=== PATIENT | female | born 1960 | race Caucasian/White ===

== ENCOUNTER → 2017-11-02 09:45 | Outpatient (CLI) | payer MEDICARE, MEDICAID, SELFPAY | PROVIDERS: PCP Family Medicine; Visit Provider Orthopaedic Surgery | DX: Z47.89 Encounter for other orthopedic aftercare (principal); G56.02 Carpal tunnel syndrome, left upper limb ==

== ENCOUNTER → 2018-01-04 09:05 | Outpatient (BNVA) | payer MEDICARE, MEDICAID, SELFPAY | PROVIDERS: Visit Provider Orthopaedic Surgery | DX: G56.01 Carpal tunnel syndrome, right upper limb (principal); M77.11 Lateral epicondylitis, right elbow | CPT/HCPCS: 99213 ==

== ENCOUNTER → 2018-02-14 08:54 | Outpatient (BNVA) | payer MEDICARE, MEDICAID, SELFPAY | PROVIDERS: PCP Family Medicine; Visit Provider Orthopaedic Surgery | DX: M25.521 Pain in right elbow (principal) | CPT/HCPCS: 20605; 99213; J1030 ==

== ENCOUNTER → 2018-04-03 10:21 | Outpatient (BNVA) | payer MEDICARE, MEDICAID, SELFPAY | PROVIDERS: PCP Family Medicine; Referring Provider Family Medicine; Visit Provider Orthopaedic Surgery | DX: M77.11 Lateral epicondylitis, right elbow (principal) | CPT/HCPCS: 99213; 99242 ==

== ENCOUNTER 2018-04-10 07:56 | Outpatient (CLI) | payer MEDICARE, MEDICAID, SELFPAY | END 2018-04-10 08:16 | PROVIDERS: PCP Family Medicine; Visit Provider Orthopaedic Surgery | DX: M77.11 Lateral epicondylitis, right elbow (principal); Z01.818 Encounter for other preprocedural examination ==

== ENCOUNTER 2018-04-11 12:14 | Day surgery (SDC) | payer MEDICARE, MEDICAID, SELFPAY ==
[2018-04-11] VITALS (7 sets, daily range): BP systolic 99–128; BP diastolic 60–72; PULSE 79–90; RESP 12–18; TEMP 36.2–36.7; O2SAT 92–99
[2018-04-11] MEDS: Lactated Ringers 1,000 ML 80 ML IV (12:47)
[2018-04-11] MEDS: Albuterol/Ipratropium 3 ML UPD VIAL UPD (13:23)
--- NOTE | 2018-04-11 15:49 | PDOC.DSDIS_ITS ---
Discharge Plan Disposition Patient Disposition: HOME Condition: Good Discharge Details Reason For Visit: (R) LAT EPICONDYLITIS Attending Provider: Cheikh Freed Primary Care Provider: Davis Casas Home Meds and New Rx's Prescriptions: New hydrocodone-acetaminophen 5-325 mg tablet 1 tab PO Q6H PRN (Reason: pain) Qty: 20 RF: 0 ibuprofen 800 mg tablet 800 mg PO TID Qty: 60 RF: 0 Continued zolpidem [Ambien CR] 6.25 MG tablet,ext release multiphase 6.25 mg PO HS RF: 0 aspirin 325 MG tablet 325 mg PO HS RF: 0 omeprazole 20 MG capsule,delayed release(DR/EC) 20 mg PO HS RF: 0 Spiriva with HandiHaler 18 MCG capsule, w/inhalation device 1 puff Inhalation DAILY PRNRF: 0 Symbicort 10.2 GM HFA aerosol inhaler 2 puff Inhalation DAILY RF: 0 All Day Allergy (cetirizine) 10 MG capsule 10 mg PO HS RF: 0 naproxen 500 MG tablet 500 mg PO PRN PRNRF: 0 Airs Disposable Nebulizer 1 EACH misc 1 ea Inhalation PRN PRNRF: 0 Ventolin HFA 200 PUFF HFA aerosol inhaler 2 puff Inhalation PRN PRNRF: 0 hydrocodone-acetaminophen [Vicodin HP] 10-300 mg Tablet 1 tab PO TID RF: 0 ranitidine HCl [Zantac] 300 mg Tablet 300 mg PO HS RF: 0 benzonatate 100 mg Capsule 100 mg PO HS RF: 0 doxycycline monohydrate 100 mg Capsule 100 mg PO HS RF: 0 aripiprazole 5 mg Tablet 5 mg PO HS RF: 0 Discharge Instructions Additional Instructions: Sling for comfort. May take R arm out of sling as much as your pain allows. Gently bend and straighten R elbow only as much as your pain allows. 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 Keep dressings dry. Follow up in 's office in one week. Take ibuprofen 3 times/day for pain and swelling. Take hydrocodone, if needed, for breakthru pain. Apply icebag to outside of elbow 4 times/day for 1 hour each time. Equipment/Supplies: Sling Activity:: Activity as Tolerated Remove Dressings/Wound Care:: Do Not Remove Shower/Bathe:: Cover Diet:: As Tolerated Discharge Orders Discharge Orders: Discharge Order (Routine); Ordered 04/11/18 Ordered By: Cheikh Freed DS: Diagnosis Discharge Diagnosis (1) Lateral epicondylitis of right elbow: Status: Acute
--- NOTE | 2018-04-12 16:29 | ROE_ITS ---
DATE OF PROCEDURE: April 11, 2018 PREOPERATIVE DIAGNOSIS: Lateral epicondylitis, right. POSTOPERATIVE DIAGNOSIS: Lateral epicondylitis, right. PROCEDURE: Fasciotomy elbow, right, with partial ostectomy for chronic lateral epicondylitis. SURGEON: Cheikh Freed M.D. OUTSIDE PLANT TECHNICIAN: Ga Agosto PA-C ANESTHESIA: General. INDICATIONS: This is a 57-year-old white female with chronic right lateral epicondylitis symptomatic for over a year's time. She has reached the point where she can no longer function because of the p ain. Conservative measures over more than six months' time have failed to alleviate her symptoms. S urgery was, therefore, recommended. The risks and complications of the procedure were explained to t he patient in detail preoperatively. PROCEDURE: The patient was taken to the Operating Room on 04/11/18. She was placed supine on the ope rating table and a general anesthetic was administered. A proximal tourniquet was applied to the rig ht upper arm and then the right elbow was prepped and draped free in the usual sterile fashion. A 5- cm oblique incision centered over the lateral condyle was made and was carried through the subcu. Th e common extensor origin was then sharply reflected from the lateral epicondyle. Care was taken not to release the lateral collateral ligament of the elbow. The undersurface of the common extensor allie gin was then debrided with a rongeur to health tendinous tissue. A small hook osteotome was then use d to remove a wafer of bone from the lateral epicondyle to decrease the bony prominence and to provid e a bleeding bed for reattachment of the common extensor tendons. The wound was irrigated with Betad ine and saline solution. The wound margins were infiltrated with 0.5% Marcaine with epinephrine solu tion. The common extensor tendons were then reattached to the lateral elbow with interrupted figure- of-eight sutures of #1 Vicryl suture material. The subcu was approximated with a few interrupted #3- 0 Vicryl sutures and the skin edges were approximated with skin meghan. Sterile dressings were appl ied of Xeroform gauze, sterile gauze 4x4s, an ABD pad, and wrapped with an Gus bandage. Her arm was placed in a sling. She tolerated the procedure well. Blood loss was minimal. Surgery was done unde r tourniquet control. She was discharged to the Recovery Room in good condition. The patient was discharged home from the Day Surgery Unit when fully recovered from her general anest hesia. She was given instructions to use a sling for comfort. She may keep her right arm out of the sling as much as discomfort allows. She is encouraged to bend and straighten her right elbow as muc h as discomfort allows. She is cautioned not to lift anything more than a coffee cup with her right hand. She may remove her dressings, shower and get her incision wet in 72 hours. She can leave the incision uncovered when it is dry and sealed. She is to put ice to the lateral elbow every 4 hours f or 1 hour at a time to help with pain and inflammation. She is given a prescription for pain and inf lammation of ibuprofen 800 mg p.o. t.i.d. She is given a prescription for breakthrough pain of hydro codone/APAP 5 mg/325 mg, 1 tablet every 6 hours if needed for breakthrough pain. She will follow up in my office in two weeks.
== END 2018-04-11 16:35 | disposition home or self-care (01) ==
PROVIDERS: PCP Family Medicine; Visit Provider Orthopaedic Surgery
PROC: (CPT 24357; principal; 2018-04-11 14:00)
DX: M77.11 Lateral epicondylitis, right elbow (principal); J44.9 Chronic obstructive pulmonary disease, unspecified; K21.9 Gastro-esophageal reflux disease without esophagitis; F17.210 Nicotine dependence, cigarettes, uncomplicated
CPT/HCPCS: 24359; 94640; J0690; J1885; J2405; J3010; J7620; L3650

== ENCOUNTER → 2018-04-17 10:19 | Outpatient (BNVA) | payer MEDICARE, MEDICAID, SELFPAY | PROVIDERS: PCP Family Medicine; Referring Provider Family Medicine; Visit Provider Orthopaedic Surgery | DX: M77.11 Lateral epicondylitis, right elbow (principal); Z47.89 Encounter for other orthopedic aftercare; J44.9 Chronic obstructive pulmonary disease, unspecified; F17.210 Nicotine dependence, cigarettes, uncomplicated ==

== ENCOUNTER → 2018-04-24 10:22 | Outpatient (BNVA) | payer MEDICARE, MEDICAID, SELFPAY | PROVIDERS: PCP Family Medicine; Referring Provider Family Medicine; Visit Provider Orthopaedic Surgery | DX: Z47.89 Encounter for other orthopedic aftercare (principal); M77.11 Lateral epicondylitis, right elbow; J44.9 Chronic obstructive pulmonary disease, unspecified; F17.210 Nicotine dependence, cigarettes, uncomplicated ==

== ENCOUNTER → 2018-05-17 10:14 | Outpatient (BNVA) | payer MEDICARE, MEDICAID, SELFPAY | PROVIDERS: PCP Family Medicine; Referring Provider Family Medicine; Visit Provider Orthopaedic Surgery | DX: Z47.89 Encounter for other orthopedic aftercare (principal); M77.11 Lateral epicondylitis, right elbow; J44.9 Chronic obstructive pulmonary disease, unspecified; F17.210 Nicotine dependence, cigarettes, uncomplicated ==

== ENCOUNTER → 2021-09-10 00:09 | Outpatient (CLI) | payer MEDICARE, MEDICAID, SELFPAY ==
--- NOTE | 2021-09-10 | DI.MRI_ITS ---
Exam(s) MR CERVICAL SPINE WO EXAM: MR CERVICAL SPINE WO CLINICAL HISTORY: LT SIDED NECK PAIN M54.2 PAIN LEFT SHOULDER M25.512 PAIN LT UPPER EXTREMITY. TECHNIQUE: Multiplanar multisequence MRI was performed. COMPARISON: MR MRI - CERVICAL SPINE WO CONT from 08/09/2017 FINDINGS: MR examination of the cervical spine was performed according to the usual protocol. No significant bony signal abnormality seen. There are mild facet hypertrophic degenerative changes and mild endplate hypertrophic degenerative changes. Posterior fossa structures appear intact as visualized. Spinal cord shows normal diameter and normal signal throughout on T2 weighted imaging. No significant findings at C2-3. At C3-4, there is mild neural foraminal narrowing on the left. No disc herniation or central canal s marianne stenosis. No significant findings at C 4 5. No disc herniation, central canal spinal stenosis, or neural hanna inal stenosis. At C5-6, there is a mild prominence of the disc osteophyte complex on the right laterally with probab le small superimposed disc herniation. Minimal deformity of anterior cord surface on the right noted at this level. The right neural foramen may be mildly impinged as well. No central canal spinal st enosis. At C6-7, there is an apparent left-sided paracentral to left lateral disc herniation. Borders of the herniated disc are not ideally visualized but the disc herniation appears to project superiorly into the spinal canal at the C6 vertebral body level and the left neural foramen at C6-7 also appears imp inged. No definite cord impingement. The No significant findings at its C7-T1 or T1-T2. IMPRESSION: Left-sided disc herniation with complex anatomy at C6-7 as described above. Please see above discuss ion. Please correlate with the patient's neurologic symptoms. Please note that these findings were not present on prior cervical spine MRI of July 2017. DATA REPOSITORY:
== END ==
PROVIDERS: PCP Family Medicine; Visit Provider Physical Medicine & Rehabilitation
DX: M25.512 Pain in left shoulder; M50.223 Other cervical disc displacement at C6-C7 level; G89.29 Other chronic pain; M79.602 Pain in left arm
CPT/HCPCS: 72141

== ENCOUNTER 2022-09-22 11:42 | Outpatient (CLI) | payer MEDICARE, MEDICAID, SELFPAY ==
[2022-09-22 11:56] LABS: Abs Immature Grans 0.05 10^3/uL (0.0-0.06); Absolute Basophil Count 0.03 10^3/uL (0.0-0.2); Absolute Lymphocyte Count 2.42 10^3/uL (1.2-3.4); Absolute Monocyte Count 0.58 10^3/uL (0.1-0.8); Absolute Neutrophil Count 6.54 10^3/uL (1.2-6.7); Basophils % 0.3; HCT 44.7 % (36.0-46.0); HGB 15.5 g/dL (11.2-15.7); Immature Grans % 0.5; Lymphocytes % 24.9; MCH 32.3 pg (27.0-33.0); MCHC 34.7 % (32.0-36.0); MCV 93 fL (80-95); Neutrophils % 67.3; Platelet Count 197 10^3/uL (130-400); RDW 11.9 % (11.7-14.6); RDW-SD 41.3 fL; WBC 9.72 10^3/uL (4.4-10.8)
[2022-09-22 12:32] LABS: ALT 20 U/L (14-59); AST 13 U/L (15-37); Albumin 3.5 g/dL (3.4-5.0); Alkaline Phosphatase 95 U/L (46-116); Anion Gap 8.1 mmol/L (3-11); BUN 14 mg/dL (7-18); Bilirubin, Total 0.5 mg/dL (0.2-1.0); CO2 28.9 mmol/L (21.0-32.0); CREATININE 0.9 mg/dL (0.55-1.02); Calcium 9.1 mg/dL (8.5-10.1); Chloride 105 mmol/L (98-107); Estimated GFR 73.19 (mL/min/1.73m2); Glucose 122 mg/dL (74-106); Sodium 142 mmol/L (136-145); Total Protein 6.5 g/dL (6.4-8.2)
== END 2022-09-22 11:43 | disposition home or self-care (01) ==
LOC: PUL 11:44 → LBN 11:49
PROVIDERS: PCP Family Medicine; Visit Provider Physician Assistant Surgical
DX: J44.1 Chronic obstructive pulmonary disease with (acute) exacerbation (principal)
CPT/HCPCS: 80053; 85025

== ENCOUNTER 2022-09-22 12:00 | Outpatient (CLI) | payer MEDICARE, MEDICAID, SELFPAY ==
--- NOTE | 2022-09-22 11:53 | DI.RAD_ITS ---
Exam(s) XR CHEST 2V PA LATERAL EXAM: XR CHEST 2V PA LATERAL CLINICAL HISTORY: COPD exacerbation, J44.1, ?pneumonia TECHNIQUE: 2D digital imaging was performed. COMPARISON: CR CHEST 2 VIEWS PA,LAT from 05/01/[address] CHEST LOW DOSE CA SCREENING from 01/26/2022 FINDINGS: HEART: Normal size. Aorta: Not dilated. PULMONARY VASCULATURE: Normal. LUNGS: Emphysematous and fibrotic changes. Anterior scarring PLEURAL SPACE: No pleural effusion or pneumothorax. BONE:Unremarkable for age. IMPRESSION: No acute abnormality. DATA REPOSITORY: RADIATION DOSE DELIVERED:
== END 2022-09-22 12:20 ==
LOC: DI 12:01
PROVIDERS: PCP Family Medicine; Visit Provider Physician Assistant Surgical
DX: J44.1 Chronic obstructive pulmonary disease with (acute) exacerbation (principal)
CPT/HCPCS: 71046

== ENCOUNTER 2022-10-12 02:49 | Outpatient (CLI) | payer MEDICARE, MEDICAID, SELFPAY ==
--- NOTE | 2022-10-12 08:45 | DI.CT_ITS ---
Exam(s) CT CHEST PE ABD PELVIS W EXAM: CT CHEST PE ABD PELVIS W CLINICAL HISTORY: tachypnea, COPD, dyspnea, GI bleed, hematochezia. TECHNIQUE: Imaging Protocol: Axial CT angiography was performed with multi-slice acquisition and mu lti-planar and/or 3D reconstructions. CONTRAST MATERIAL: Intravenous: Omnipaque 350 Contrast volume:100 ml COMPARISON: CT CT CHEST LOW DOSE CA SCREENING from 12/24/[address] CHEST LOW DOSE CA SCREENING from 01/26/2022 CR XR CHEST 2V PA LATERAL from 09/22/2022 FINDINGS: CHEST: Pulmonary Arteries: No evidence of filling defect to suggest pulmonary emboli. Tracheobronchial tree: Patent where visualized. Mediastinum and Cornelia: No dominant adenopathy or fluid collection. Pulmonary parenchyma: Severe centrilobular emphysematous changes, greatest right upper lobe. Minimal scarring left upper lobe. Scarring anterior right middle lobe.. No consolidation or dominant measu rable mass. Pleura: No effusion or pneumothorax. Heart: The heart is not dilated. Mild coronary artery calcifications are seen. Aorta: Thoracic aorta non-dilated. Mild atherosclerotic changes at arch. Bones: Unremarkable for age. Tubes, Catheters, and Lines: None ABDOMEN: Liver: Normal density. No measurable mass. Gallbladder and Biliary Tract: No radiodense calculus or dilation. Pancreas: Normal density, no abnormal calcifications or inflammatory process. Spleen: Normal. Adrenals: No masses seen. Kidneys: Normal size, contour and axis. No radiodense stones or obstructive uropathy. No masses seen. Abdominal Aorta: Abdominal portion non-dilated. Atherosclerotic changes. No significant narrowing at the celiac axis or SMA. Bowel: No obstruction or bowel wall thickening. Appendix is not seen. Diverticulosis lower descend ing and sigmoid colon. No evidence of diverticulitis. Increased stool seen in right colon. Transve rse colon through rectum show little stool. Peritoneal Cavity: No ascites, collection or mesenteric inflammatory response. Lymph Nodes: Within normal limits. Bones: Unremarkable. Soft Tissues: Unremarkable. PELVIS: Bladder: Symmetric distention, no gross wall thickening. Reproductive Organs: Status post hysterectomy. Lymph Nodes: Within normal limits. Bones: Unremarkable for age. IMPRESSION: 1. No evidence of pulmonary embolism. Emphysematous changes. No evidence of mass. 2. No acute abdominal or pelvic process. Diverticulosis lower descending and sigmoid colon. No ev idence of diverticulitis RADIATION DOSE DELIVERED: Total DLP DATA REPOSITORY: All CT scans at this facility are submitted to the National Radiology Data Registry (NRDR) Dose Index Registry (DIR) with the [employer] (ACR). RADIATION OPTIMIZATION: All CT scans at this facility use at least one of these dose optimization te chniques: automated exposure control; mA and/or kV adjustment per patient size (includes targeted exa ms where dose is matched to clinical indication); or iterative reconstruction.
[2022-10-12] MEDS: Normal Saline - Diluent 50 ML VIAL IJ (14:04)
[2022-10-12] MEDS: Omnipaque 350 MG/ML 100 ML BTL IJ (14:05)
[2022-10-12] MEDS: Normal Saline Flush 10 ML SYR IVP (14:06)
== END 2022-10-12 03:09 ==
LOC: DI 02:49
PROVIDERS: PCP Family Medicine; Visit Provider Student in an Organized Health Care Education/Training Program
DX: K92.1 Melena (principal); R06.00 Dyspnea, unspecified; K57.30 Diverticulosis of large intestine without perforation or abscess without bleeding
CPT/HCPCS: 71275; 74177; J3490

== ENCOUNTER → 2023-02-20 13:52 | Outpatient (BNVA) | payer MEDICARE, MEDICAID, SELFPAY | PROVIDERS: PCP Family Medicine; Referring Provider Family Medicine; Visit Provider Student in an Organized Health Care Education/Training Program | DX: J44.9 Chronic obstructive pulmonary disease, unspecified (principal); Z79.51 Long term (current) use of inhaled steroids; Z79.899 Other long term (current) drug therapy; F17.210 Nicotine dependence, cigarettes, uncomplicated; G47.34 Idiopathic sleep related nonobstructive alveolar hypoventilation | CPT/HCPCS: 99214; 99406 ==

== ENCOUNTER 2023-03-22 13:38 | Emergency (ER) | payer MEDICARE, MEDICAID, SELFPAY ==
[2023-03-22] VITALS (46 sets, daily range): BP systolic 84–150; BP diastolic 56–85; PULSE 53–90; RESP 9–30; TEMP 37–37.1; O2SAT 89–98
--- NOTE | 2023-03-22 13:30 | RT.EKG_ITS ---
APPROVED REPORT Exam: Resting ECG Reason for Exam: sob Patient Location: E HR:78 bpm ECG Measurements Heart Rate [address] 114 P 87 QRSd 95 QRS 73 QT 372 T 61 QTc 423 Conclusion Sinus rhythm...normal P axis, V-rate 60- 99 Narrow complex normal sinus rhythm at a rate of 78. Normal axis. Short CT interval at 114 ms. No obvious delta wave. T wave inversion in aVL. No ST segment abnormalities beyond mild inferior ST se gment flattening. Low voltage. No prior for comparison.
--- NOTE | 2023-03-22 13:47 | W.ED.GENAD ---
Discharge Plan Disposition Patient Disposition: Home Discharge Details Clinical Impression: COPD with acute exacerbation Primary Care Provider: Davis Casas ED Provider: Ric Rodriges Home Meds and New Rx's Prescriptions: New doxycycline hyclate 100 mg capsule 100 mg PO BID Qty: 10 0RF prednisone 50 mg tablet 40 mg PO DAILY Qty: 4 0RF Rx Instructions: Please begin taking tomorrow as you have received steroids in the emergency department Continued acetylcysteine [NAC] 600 mg capsule 600 mg PO BID Qty: 60 10RF ipratropium-albuterol 0.5 mg-3 mg(2.5 mg base)/3 mL solution for nebulization 3 ml inhalation QID PRN (Reason: SOB and wheezing) Qty: 180 12RF albuterol sulfate [Ventolin HFA] 90 mcg/actuation HFA aerosol inhaler 2 puff inhalation Q6H PRN (Reason: shortness of breath or wheezing) 30 Days Qty: 8.5 6RF trazodone 50 mg tablet 50 mg PO QHS Qty: 14 0RF melatonin 10 mg capsule 10 mg PO HS PRN (DME) Oxygen Tank See Rx Instructions .Route Rx Instructions: As directed : 1L nasal canal at HS. Trelegy Ellipta 200-62.5-25 mcg blister with device 1 inh inhalation DAILY aspirin 325 MG tablet 325 mg PO HS omeprazole 20 MG capsule,delayed release(DR/EC) 20 mg PO HS All Day Allergy (cetirizine) 10 MG capsule 10 mg PO HS naproxen 500 MG tablet 500 mg PO PRN PRN Patient Comments: no longer takes (DME) nebulizers [Airs Disposable Nebulizer] 1 EACH misc 1 ea Inhalation PRN benzonatate 100 mg Capsule 100 mg PO HS ibuprofen 800 mg tablet 800 mg PO TID Qty: 60 0RF Discharge Instructions Instructions: COPD (Chronic Obstructive Pulmonary Disease) (ED) Additional Instructions: You were seen in the emergency department for your shortness of breath. Your blood work shows no sign of a heart attack. Your x-ray showed no sign of pneumonia. Please take these prescriptions as directed. Please follow-up with your primary care provider next week. If you develop worsening shortness of breath please return to the emergency department. HPI General Date/Time Provider Initiated Documentation: 03/22/23 13:47. HPI Narrative: No MDM This is a mildly hypotensive but not tachycardic 62-year-old female with advanced COPD with shortness of breath concerning for COPD exacerbation. Given chest pain will obtain troponin the patient denies history of coronary artery disease and her ECG is nonischemic. No pain out of proportion to suggest necrotizing soft tissue infection. No fevers to suggest pneumonia however given hypotension will treat empirically with ceftriaxone and draw blood cultures.Given concern for COPD exacerbation we will treat with dexamethasone and prednisone. Given no tachycardia nor calf pain I am not concerned for DVT so I did not send a D-dimer. No trauma and equal breath sounds so doubt pneumothorax. Patient is not a dialysis patient so my suspicion for tamponade is low. Patient has a low voltage on ECG however given her history of COPD suspect that this is secondary to lung hyperinflation. No history of CHF and no significant lower edema to suggest new onset CHF. 2:15 PM Reassuring normal lactate. CBC lacks anemia thrombocytopenia and leukocytosis. Venous blood gas showing no acidemia nor hypercarbia. 3:07 PM COVID influenza and RSV all negative. Negative troponin. Basic metabolic panel showing no CKD nor ROSENDO. No acute electrolyte abnormalities. Chest x-ray with severe emphysematous changes but no acute findings. 3:57 PM I reassessed the patient and she was feeling improved. She is saturating well on room air with improved work of breathing. She is pending a repeat troponin. I signed patient out to Dr. Dos Santos and written her up with continued discharge instructions. Chronic conditions affecting the care of the patient: COPD History obtained from an outside historian: N/A External record review: [facility] [place] [Diagnostic interpretations performed by me: Per my independent interpretation chest x-ray shows:Hyperinflated lungs. No acute cardiopulmonary process Per my independent interpretation EKG shows: Narrow complex normal sinus rhythm at a rate of 78. Normal axis. Short ND interval at 114 ms. No obvious delta wave. T wave inversion in aVL. No ST segment abnormalities beyond mild inferior ST segment flattening. Low voltage. No prior for comparison. Medications: Doxy, prednisone Social determinants of health affecting disposition: N/A Management discussed with: N/A Treatment/interventions considered: N/A Response to therapies provided: Improved work of breathing status post nebulizer treatment HPI This is a 62-year-old female with a history of COPD on nocturnal oxygen as needed arriving to the emergency department via private vehicle in the setting of increased shortness of breath. She recently completed azithromycin as prescribed by her primary care provider. She has had productive cough with labored breathing and increased her oxygen to 3 L at night. She continues smoking but does note that she has cut down. She has had no calf pain. She denies routine ethanol and illicits. Patient denies dysuria and frequency. She does feel a heavy discomfort in her chest. It radiates into her back and is associated with difficulty breathing. She has never been hospitalized or intubated in the setting of her COPD in the past. She said no fevers. She has not been nauseous nor vomiting. Exam General: Well-appearing in no acute distress speaking in 4-5 word sentences. Head: Normocephalic, atraumatic. Eye: Extraocular eye movements intact. No conjunctival injection. No scleral icterus. Ear, nose, mouth, throat: Grossly normal inspection. Normal voice, handling secretions normally. Neck: Trachea midline. Cardiovascular: Well-perfused distal extremities. Rapid regular rate Respiratory: Mild abdominal breathing. No accessory muscle use. No tripoding. Markedly prolonged and expiratory wheezes bilaterally. Gastrointestinal: Nondistended abdomen. Musculoskeletal: No lower extremity pitting edema. Moving all 4 extremities spontaneously. Skin: Normal for age and race, grossly normal temperature and turgor. No acute rash. Neurologic: Alert and appropriate, no apparent acute deficits. Psychiatric: Mood and manner are appropriate. Grooming and personal hygiene are appropriate. Related Data Home Medications Medication Instructions Recorded Confirmed aspirin 325 mg tablet 325 mg PO HS 06/16/13 03/22/23 cetirizine 10 mg capsule (All Day 10 mg PO HS 06/16/13 03/22/23 Allergy (cetirizine)) omeprazole 20 mg capsule,delayed 20 mg PO HS 06/16/13 03/22/23 release naproxen 500 mg tablet 500 mg PO PRN PRN 10/17/14 03/22/23 nebulizers (Airs Disposable 10/13/17 03/22/23 Nebulizer mis) benzonatate 100 mg capsule 100 mg PO HS 04/10/18 03/22/23 ibuprofen 800 mg tablet 800 mg PO TID #60 tabs 04/11/18 03/22/23 Oxygen 08/13/21 03/22/23 fluticasone fur. 200 mcg-umeclid 1 inh inhalation DAILY 08/13/21 03/22/23 62.5 mcg-vilant 25 mcg inhalat.powder (Trelegy Ellipta) melatonin 10 mg capsule 10 mg PO HS PRN 08/13/21 03/22/23 ipratropium 0.5 mg-albuterol 3 mg 3 ml inhalation QID PRN SOB and 06/30/22 03/22/23 (2.5 mg base)/3 mL nebulization wheezing #180 mL soln albuterol sulfate 90 mcg/actuation 2 puff inhalation Q6H PRN 09/05/22 03/22/23 aerosol inhaler (Ventolin HFA) shortness of breath or wheezing 30 days #8.5 grams trazodone 50 mg tablet 50 mg PO QHS sleep #14 tabs 11/21/22 03/22/23 acetylcysteine 600 mg capsule (NAC) 600 mg PO BID #60 caps 02/20/23 03/22/23 doxycycline hyclate 100 mg capsule 100 mg PO BID #10 caps 03/22/23 prednisone 50 mg tablet 40 mg (0.8 x 50 mg) PO DAILY #4 03/22/23 tabs Previous Rx's Medication Instructions Recorded ibuprofen 800 mg tablet 800 mg PO TID #60 tabs 04/11/18 ipratropium 0.5 mg-albuterol 3 mg 3 ml inhalation QID PRN SOB and 06/30/22 (2.5 mg base)/3 mL nebulization wheezing #180 mL soln albuterol sulfate 90 mcg/actuation 2 puff inhalation Q6H PRN 09/05/22 aerosol inhaler (Ventolin HFA) shortness of breath or wheezing 30 days #8.5 grams trazodone 50 mg tablet 50 mg PO QHS sleep #14 tabs 11/21/22 acetylcysteine 600 mg capsule (NAC) 600 mg PO BID #60 caps 02/20/23 doxycycline hyclate 100 mg capsule 100 mg PO BID #10 caps 03/22/23 prednisone 50 mg tablet 40 mg (0.8 x 50 mg) PO DAILY #4 03/22/23 tabs Allergies Allergy/AdvReac Type Severity Reaction Status Date / Time Penicillins Allergy Intermediate Hives Verified 03/22/23 14:51 oxycodone HCl [From Percocet] AdvReac Intermediate sick to Verified 03/22/23 14:51 stomach Sulfa (Sulfonamide AdvReac Intermediate sick Verified 03/22/23 14:51 Antibiotics) PFSH All Active Problems (Updated 03/22/23 @ 15:59 by Ric Rodriges MD) COPD with acute exacerbation (Acute) Hematochezia (Acute) Dyspnea (Acute) COPD exacerbation (Acute) Nocturnal hypoxia (Acute) Nicotine dependence, cigarettes, uncomplicated (Acute) Uses marijuana (Acute) Sleep-related nonobstructive alveolar hypoventilation, idiopathic (Acute) Obstructive sleep apnea syndrome in adult (Acute) Hypersomnia (Acute) Chronic post-traumatic stress disorder (PTSD) (Acute) Tobacco dependence (Acute) OCD (obsessive compulsive disorder) (Acute) Anogenital HPV (human papilloma virus) infection (Acute) Status post rotator cuff surgery (Acute) Left arthroscopic RTC repair AC (acromioclavicular) joint arthritis (Acute) Status post right distal clavicle excision Status post surgical removal of ganglion cyst (Acute) Right foot Status post ovarian cystectomy (Acute) Laparoscopic ovarian cystectomy Status post abdominal hysterectomy (Acute) Status post carpal tunnel release (Acute) Right Chronic bronchitis with COPD (chronic obstructive pulmonary disease) (Chronic) Allergic rhinitis (Chronic) Chronic low back pain (Chronic) Insomnia (Chronic) Depression (Chronic) Anxiety (Chronic) Migraines (Chronic) Hyperlipidemia (Chronic) GERD (gastroesophageal reflux disease) (Chronic) COPD (chronic obstructive pulmonary disease) (Chronic) Lateral epicondylitis of right elbow (Acute) Carpal tunnel syndrome of right wrist (Acute 07/31/17) Colon cancer screening (Acute) Medical History (Updated 03/22/23 @ 15:59 by Ric Rodriges MD) Post covid-19 condition, unspecified Onset :08/26/2020-tested positive 06/16/20 Synovial cyst of left popliteal space Acute exacerbation of chronic bronchitis Toxic polyneuropathy Family History (Updated 04/10/18 @ 09:04 by Courtney Akins) Mother , in MVA No problems noted. 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
[2023-03-22] MEDS: Albuterol/Ipratropium 3 ML UPD VIAL UPD (13:57)
[2023-03-22 14:03] LABS: BE (Venous) 7 mmol/L (-2-3); HCO3 (Venous) 32 mmol/L (23-28); O2 Sat (Venous) 83 %; TCO2 (Venous) 28 mmol/L (24-29); pCO2 (Venous) 48 mmHg (41-51); pH (Venous) 7.42 (7.31-7.41); pO2 (Venous) 45 mmHg
[2023-03-22 14:05] LABS: Lactate 1.4 mmol/L (0.6-1.4)
[2023-03-22 14:06] LABS: Abs Immature Grans 0.04 10^3/uL (0.0-0.06); Absolute Basophil Count 0.03 10^3/uL (0.0-0.2); Absolute Eosinophil Count 0.14 10^3/uL (0.0-0.7); Absolute Lymphocyte Count 3.13 10^3/uL (1.2-3.4); Absolute Monocyte Count 0.78 10^3/uL (0.1-0.8); Absolute Neutrophil Count 5.81 10^3/uL (1.2-6.7); Basophils % 0.3; Eosinophils % 1.4; HCT 40.7 % (36.0-46.0); HGB 13.6 g/dL (11.2-15.7); Immature Grans % 0.4; Lymphocytes % 31.5; MCH 31.8 pg (27.0-33.0); MCHC 33.4 % (32.0-36.0); MCV 95 fL (80-95); MPV 10.4 fL (8.0-11.0); Monocytes % 7.9; Neutrophils % 58.5; Platelet Count 131 10^3/uL (130-400); RBC 4.28 10^6/uL (3.93-5.22); RDW 12.5 % (11.7-14.6); RDW-SD 44.1 fL; WBC 9.93 10^3/uL (4.4-10.8)
[2023-03-22] MEDS: Normal Saline 500 ML IV (14:29)
[2023-03-22] MEDS: cefTRIAXone 2 GM/50 ML BAG IVPB (14:30)
[2023-03-22] MEDS: predniSONE 20 MG TAB 40 MG PO (14:30)
[2023-03-22] MEDS: Doxycycline Hyclate 100 MG CAP PO (14:30)
[2023-03-22 14:31] LABS: Anion Gap 7.1 mmol/L (3-11); BUN 13 mg/dL (7-18); CO2 30.9 mmol/L (21.0-32.0); CREATININE 0.8 mg/dL (0.55-1.02); Calcium 9.6 mg/dL (8.5-10.1); Chloride 107 mmol/L (98-107); Glucose 100 mg/dL (74-106); Potassium 3.9 mmol/L (3.5-5.1); Sodium 145 mmol/L (136-145); Troponin I < 50 ng/L (<or=60)
--- NOTE | 2023-03-22 14:48 | DI.RAD_ITS ---
Exam(s) XR PORTABLE CHEST AP EXAM: XR PORTABLE CHEST AP CLINICAL HISTORY: Shortness of breath TECHNIQUE: 2D digital imaging was performed. COMPARISON: CR XR CHEST 2V PA LATERAL from 09/22/[address] CHEST PE ABD PELVIS W from 10/12/2022 FINDINGS: LUNGS: Severe emphysematous changes. No infiltrate.z. No pleural abnormality seen. HEART: Normal size. AORTA: Normal diameter. BONES: Unremarkable for age. Soft tissues: Unremarkable. IMPRESSION: Severe emphysematous changes. No acute findings. DATA REPOSITORY: RADIATION DOSE DELIVERED:
[2023-03-22 15:00] LABS: COVID-19 PCR Negative (Negative); Influenza A PCR Negative (Negative); Influenza B PCR Negative (Negative); RSV PCR Negative (Negative)
[2023-03-22 15:06] LABS: Source Nasopharynx
[2023-03-22 17:03] LABS: Troponin I < 50 ng/L (<or=60)
== END 2023-03-22 17:32 | disposition home or self-care (01) ==
PROVIDERS: Emergency Provider Emergency Medicine; PCP Family Medicine
DX: J44.1 Chronic obstructive pulmonary disease with (acute) exacerbation (principal); F17.210 Nicotine dependence, cigarettes, uncomplicated; Z99.81 Dependence on supplemental oxygen; Z11.52 Encounter for screening for COVID-19
CPT/HCPCS: 36415; 80048; 82805; 87040; 87637; 93005; 94640; 96365; 99284; 71045; 83605; 84484; 85025; 93010; J7512; J7620

== ENCOUNTER → 2023-03-23 00:25 | Outpatient (CLI) | payer MEDICARE, SELFPAY ==
--- NOTE | 2023-03-23 | DI.CTLCSR_ITS ---
Exam(s) CT CHEST LUNG CANCER SCREEN EXAM: CT CHEST LUNG CANCER SCREEN CLINICAL HISTORY: SCREENING FOR LUNG CA, CURRENT SMOKER, F17.210 TECHNIQUE: Imaging Protocol: Axial computed tomography images with coronal and sagittal reformatted images were created and reviewed. Low dose screening protocol. COMPARISON: CT CT CHEST LOW DOSE CA SCREENING from 12/24/[address] CHEST PE ABD PELVIS W from 10/12/2022 FINDINGS: Tracheobronchial tree: No bronchiectasis or mucus plugging.. Mediastinum and Cornelia: No dominant adenopathy or fluid collection. Pulmonary parenchyma: No consolidation or dominant measurable mass. Moderate to severe emphysematous changes. Linear scarring now present in the medial right upper lobe. Lung Nodules: Stable 4 millimeter nodule jacqueline inferior right lower lobe. Pleura: No effusion. No pneumothorax. Heart: The heart is not dilated. Mild coronary artery calcifications are seen. Aorta: Thoracic aorta non-dilated. Upper abdomen: Unremarkable. Bones: Mild degenerative changes, unremarkable for age. Soft Tissues: Unremarkable. IMPRESSION: No suspicious pulmonary nodules. Lung RADS Cat 2 - Benign Appearance / Behavior: Nodules with a very low likelihood of becoming a clin ically active cancer due to size or lack of growth Lung-RADS 1.0 CATEGORIES: Category 0 - Prior chest CT exam(s) being located for comparison. Category 1 - Annual screening in 12 months. No nodules or definitely benign nodules. Category 2 - Annual screening in 12 months. Benign appearance. Nodules with low likelihood of becomin g active cancer. Category 3 - 6-month follow-up. Probably benign. Short-term follow-up suggested. Nodules with low lik elihood of becoming active cancer. Category 4A - 3-month follow-up and CT/PET if >8 mm in size. Suspicious finding. Findings which requi re additional testing. Category 4B - Findings which require additional testing and tissue sampling. Category 4X - Category 3 or 4 nodules with additional features or imaging findings that increases the suspicion of malignancy. Modifier S- Potentially clinically significant findings (non lung cancer) RADIATION DOSE DELIVERED: Total DLP DATA REPOSITORY: All CT scans at this facility are submitted to the National Radiology Data Registry (NRDR) Dose Index Registry (DIR) with the [employer] ([employer]). RADIATION OPTIMIZATION: All CT scans at this facility use at least one of these dose optimization te chniques: automated exposure control; mA and/or kV adjustment per patient size (includes targeted exa ms where dose is matched to clinical indication); or iterative reconstruction.
== END ==
PROVIDERS: PCP Family Medicine; Visit Provider Student in an Organized Health Care Education/Training Program
DX: F17.210 Nicotine dependence, cigarettes, uncomplicated (principal); Z12.2 Encounter for screening for malignant neoplasm of respiratory organs
CPT/HCPCS: 71271

== ENCOUNTER 2023-06-06 12:48 | Outpatient (CLI) | payer MEDICARE, MEDICAID, SELFPAY ==
--- NOTE | 2023-06-12 10:01 | W.NOCTURNAL ---
Date of service: 06/08/23 Time of Service: 21:49 Nocturnal Oximetry Note: Overnight Oximetry Amount of time analyzed: 11 hours, 45 minutes, on room air Number of minutes under 88%: 475.9min RYLEE:1.4 Appearance of oxygen saturation pattern:Gradual increases and decreases which may represent cardiopulmonary disease Recommendation: 2LPM O2 overnight Page Lord MD [facility]monary [facility] Medicine
== END 2023-06-06 12:49 | disposition home or self-care (01) ==
PROVIDERS: PCP Family Medicine; Visit Provider Student in an Organized Health Care Education/Training Program
DX: G47.34 Idiopathic sleep related nonobstructive alveolar hypoventilation (principal)
CPT/HCPCS: 94762

== ENCOUNTER → 2023-09-05 15:01 | Outpatient (BNVA) | payer MEDICARE, MEDICAID, SELFPAY | PROVIDERS: PCP Family Medicine; Referring Provider Family Medicine; Visit Provider Physician Assistant Surgical | DX: J44.9 Chronic obstructive pulmonary disease, unspecified (principal); J96.11 Chronic respiratory failure with hypoxia; G47.34 Idiopathic sleep related nonobstructive alveolar hypoventilation; F17.210 Nicotine dependence, cigarettes, uncomplicated | CPT/HCPCS: 94618; 99214 ==

== ENCOUNTER → 2024-09-19 12:28 | Outpatient (BNVA) | payer MEDICARE, SELFPAY | PROVIDERS: PCP Family Medicine; Referring Provider Family Medicine; Visit Provider Physician Assistant Surgical | DX: J44.9 Chronic obstructive pulmonary disease, unspecified (principal); F17.210 Nicotine dependence, cigarettes, uncomplicated; G47.34 Idiopathic sleep related nonobstructive alveolar hypoventilation; J96.11 Chronic respiratory failure with hypoxia | CPT/HCPCS: 99214; 94618; 36415 ==

== ENCOUNTER 2024-09-19 13:51 | Outpatient (REF) | payer MEDICARE, SELFPAY ==
[2024-09-19 13:44] LABS: Abs Immature Grans 0.03 10^3/uL (0.0-0.06); Absolute Basophil Count 0.03 10^3/uL (0.0-0.2); Absolute Eosinophil Count 0.07 10^3/uL (0.0-0.7); Absolute Lymphocyte Count 2.09 10^3/uL (1.2-3.4); Absolute Monocyte Count 0.95 10^3/uL (0.1-0.8); Absolute Neutrophil Count 6.19 10^3/uL (1.2-6.7); Basophils % 0.3 %; Eosinophils % 0.7 %; HCT 45.4 % (36.0-46.0); HGB 15.3 g/dL (11.2-15.7); Immature Grans % 0.3 %; Lymphocytes % 22.3 %; MCH 31.7 pg (27.0-33.0); MCHC 33.7 % (32.0-36.0); MCV 94 fL (80-95); MPV 10.9 fL (8.0-11.0); Monocytes % 10.1 %; Neutrophils % 66.3 %; Platelet Count 133 10^3/uL (130-400); RBC 4.82 10^6/uL (3.93-5.22); WBC 9.36 10^3/uL (4.4-10.8)
[2024-09-19 14:33] LABS: ALT 24 U/L (14-59); AST 16 U/L (15-37); Albumin 3.8 g/dL (3.4-5.0); Alkaline Phosphatase 97 U/L (46-116); Anion Gap 7.6 mmol/L (3-11); BUN 18 mg/dL (7-18); Bilirubin, Total 0.3 mg/dL (0.2-1.0); CO2 29.4 mmol/L (21.0-32.0); CREATININE 0.7 mg/dL (0.55-1.02); Calcium 9.6 mg/dL (8.5-10.1); Chloride 107 mmol/L (98-107); Estimated GFR 97.72 (mL/min/1.73m2); Glucose 108 mg/dL (74-106); Potassium 4.4 mmol/L (3.5-5.1); Sodium 144 mmol/L (136-145); Total Protein 6.7 g/dL (6.4-8.2)
== END 2024-09-19 13:52 | disposition home or self-care (01) ==
LOC: LBN 13:51
PROVIDERS: PCP Family Medicine; Visit Provider Physician Assistant Surgical
DX: J96.11 Chronic respiratory failure with hypoxia (principal); J44.9 Chronic obstructive pulmonary disease, unspecified
CPT/HCPCS: 80053; 85025